=== PATIENT | female | born 1955 | race Caucasian/White ===

== ENCOUNTER 2021-11-17 11:16 | Emergency (ER) | payer MEDICARE ==
[~2021-11-17] VITALS: Ht 154.9 cm; Wt 52.0 kg
[~2021-11-17 11:16] MED LIST: ALPR-624 PO; ASPI81TA52 PO; ATOR40TA PO; DOCU250C96 PO; LEFL20TA PO; METH-603 PO; METH5TAB PO; OXYC-150 PO; TOFA5TAB PO; [UNRECOGNIZED DRUG - OTHER]
[2021-11-17 11:26] VITALS: BP 174/96
[2021-11-17 12:09] LABS: BASOPHILS % (AUTO) 0.1 % (0-1); EOSINOPHILS % (AUTO) 0.1 % (0-6); HEMATOCRIT 30.6 % (35.0-45.0); HEMOGLOBIN 9.9 g/dl (12.0-16.0); LYMPHOCYTES # (AUTO) 1.4 X10'3 (1.1-4.8); LYMPHOCYTES % (AUTO) 25.2 % (21-51); MEAN CORPUSCULAR HEMOGLOBIN 30.7 PG (27.0-31.0); MEAN CORPUSCULAR HGB CONC 32.3 g/dL (33.0-36.5); MEAN CORPUSCULAR VOLUME 95.1 FL (78-98); MEAN PLATELET VOLUME 9.8 FL (7.4-10.4); MONOCYTES # (AUTO) 0.6 X10'3 (0-0.9); MONOCYTES % (AUTO) 11.2 % (2-12); NEUTROPHILS # (AUTO) 3.5 X10'3 (1.8-7.7); NEUTROPHILS % (AUTO) 63.4 % (42-75); PLATELET COUNT 200 X10'3 (140-440); RED BLOOD COUNT 3.21 X10'6 (4.20-5.60); RED CELL DISTRIBUTION WIDTH 14.3 % (11.5-14.5); WHITE BLOOD COUNT 5.6 X10'3 (4.5-11.0)
[2021-11-17 12:38] LABS: ALANINE AMINOTRANSFERASE 24 U/L (12-78); ALBUMIN 3.2 G/DL (3.4-5.0); ALBUMIN/GLOBULIN RATIO 1.1 (1.1-1.5); ANION GAP 12 (8-16); ASPARTATE AMINO TRANSFERASE 26 U/L (10-37); BILIRUBIN,TOTAL 0.3 MG/DL (0.1-1.0); BLOOD UREA NITROGEN 21 MG/DL (7-18); BUN/CREATININE RATIO 16.4 (6.6-38.0); CALCIUM 8.4 MG/DL (8.5-10.1); CHLORIDE 110 MMOL/L (99-107); CREATININE 1.28 MG/DL (0.40-0.90); GLUCOSE 86 MG/DL (70-104); SODIUM 143 MMOL/L (135-145); TOTAL CARBON DIOXIDE 21.3 MMOL/L (24-32); TOTAL PROTEIN 6.2 G/DL (6.4-8.2); eGFR 42 ML/MIN
== END 2021-11-17 16:04 | disposition home or self-care (01) ==
LOC: ER 11:16
DX: R20.2 Paresthesia of skin (principal); M06.9 Rheumatoid arthritis, unspecified; Z88.5 Allergy status to narcotic agent; Z88.8 Allergy status to other drugs, medicaments and biological substances; Z88.1 Allergy status to other antibiotic agents; Z79.82 Long term (current) use of aspirin; Z79.899 Other long term (current) drug therapy
CPT/HCPCS: 29105; 36415; 80053; 85025; 93931; 93971; 99284

== ENCOUNTER 2023-06-01 08:14 | Outpatient (CLI) | payer MEDICARE, OTHER ==
[~2023-06-01] VITALS: Ht 152.4 cm; Wt 59.9 kg
[~2023-06-01 08:14] MED LIST changes: +DOCU-395 PO; -DOCU250C96 PO
[2023-06-01] MEDS ORDERED: regadenoson 0.4mg/5ml syringe IV ONE ×2 (09:40→10:05)
== END 2023-06-01 23:59 | disposition home or self-care (01) ==
LOC: RAD 08:14
PROVIDERS: ATTEND Internal Medicine Interventional Cardiology
DX: R94.31 Abnormal electrocardiogram [ECG] [EKG] (principal); I10 Essential (primary) hypertension; E78.5 Hyperlipidemia, unspecified; R00.1 Bradycardia, unspecified
CPT/HCPCS: 36410; 76937; 78452; 93017; A9500; C1751; J2785

== ENCOUNTER 2023-06-01 08:28 | Outpatient (CLI) | payer MEDICARE, OTHER ==
[~2023-06-01] VITALS: Ht 152.4 cm; Wt 59.0 kg
[2023-06-01] VITALS (10 sets, daily range): BP systolic 118–160; BP diastolic 72–89; PULSE 72–115; RESP 18–22; O2SAT 96–100
[2023-06-01 09:21] LABS: BASOPHILS % (AUTO) 0 % (0-1); EOSINOPHILS % (AUTO) 0.1 % (0-6); HEMATOCRIT 33.3 % (35.0-45.0); HEMOGLOBIN 10.8 g/dl (12.0-16.0); LYMPHOCYTES # (AUTO) 1.2 X10'3 (1.1-4.8); MEAN CORPUSCULAR HEMOGLOBIN 31.7 PG (27.0-31.0); MEAN CORPUSCULAR HGB CONC 32.4 g/dL (33.0-36.5); MEAN CORPUSCULAR VOLUME 97.9 FL (78-98); MEAN PLATELET VOLUME 9.4 FL (7.4-10.4); MONOCYTES # (AUTO) 0.7 X10'3 (0-0.9); MONOCYTES % (AUTO) 10.5 % (2-12); NEUTROPHILS # (AUTO) 4.5 X10'3 (1.8-7.7); NEUTROPHILS % (AUTO) 71.4 % (42-75); PLATELET COUNT 262 X10'3 (140-440); RED CELL DISTRIBUTION WIDTH 14.8 % (11.5-14.5); WHITE BLOOD COUNT 6.4 X10'3 (4.5-11.0)
[2023-06-01 09:48] LABS: % IRON SATURATION 24 % (11-46); IRON 57 UG/DL (49-151); TOTAL IRON BINDING CAPACITY 235 UG/DL (259-388)
[2023-06-01] MEDS ORDERED: regadenoson 0.4mg/5ml syringe IV ONE (09:55)
[2023-06-01 10:01] LABS: ALBUMIN 3.4 G/DL (3.4-5.0); ANION GAP 10 (8-16); BLOOD UREA NITROGEN 30 MG/DL (7-18); BUN/CREATININE RATIO 15.5 (10.0-20.0); CALCIUM 8.5 MG/DL (8.5-10.1); CHLORIDE 107 MMOL/L (99-107); CREATININE 1.93 MG/DL (0.40-0.90); GLUCOSE 91 MG/DL (70-104); MAGNESIUM 1.7 MG/DL (1.5-2.4); PHOSPHORUS 3.6 MG/DL (2.3-4.5); POTASSIUM 4.7 MMOL/L (3.5-5.1); SODIUM 139 MMOL/L (135-145); TOTAL CARBON DIOXIDE 22.2 MMOL/L (24-32); eCRCL 21 ML/MIN; eGFR 26 ML/MIN
[2023-06-01] MEDS ORDERED: aminophylline inj. 10 ML IV ONE (10:19)
[2023-06-01 10:33] LABS: FERRITIN 130 NG/ML (8-252)
[2023-06-02 11:01] LABS: VITAMIN D, 25-HYDROXY 30.7 ng/mL (30.0-100.0)
== END 2023-06-01 23:59 | disposition home or self-care (01) ==
LOC: LAB 08:28
PROVIDERS: ATTEND Nurse Practitioner Adult Health
DX: R94.31 Abnormal electrocardiogram [ECG] [EKG] (principal); N18.2 Chronic kidney disease, stage 2 (mild); D63.1 Anemia in chronic kidney disease; R94.4 Abnormal results of kidney function studies; E83.40 Disorders of magnesium metabolism, unspecified; E83.52 Hypercalcemia; R80.9 Proteinuria, unspecified; D50.9 Iron deficiency anemia, unspecified; R82.79 Other abnormal findings on microbiological examination of urine; N39.0 Urinary tract infection, site not specified
CPT/HCPCS: 36410; 36415; 76937; 78452; 80069; 82306; 82728; 83540; 83550; 83735; 83970; 85025; 93017; A9500; J0280; J2785; C1751

== ENCOUNTER 2024-05-19 13:41 | Emergency (ER) | payer MEDICARE, OTHER ==
[~2024-05-19] VITALS: Ht 152.4 cm; Wt 67.3 kg
[2024-05-19 13:44] VITALS: BP 185/119; PULSE 72; RESP 18; TEMP 97.9; O2SAT 97
[2024-05-19] MEDS ORDERED: PRED20TA PO (14:02)
[2024-05-19] MEDS ORDERED: HYDR25CA PO (14:02)
[2024-05-19] MEDS ORDERED: TRIA15CR61 TP (14:02)
== END 2024-05-19 14:08 | disposition home or self-care (01) ==
LOC: ER 13:41
DX: L29.8 Other pruritus (principal); Z88.8 Allergy status to other drugs, medicaments and biological substances; Z88.1 Allergy status to other antibiotic agents; Z79.82 Long term (current) use of aspirin; Z79.899 Other long term (current) drug therapy
CPT/HCPCS: 99283

== ENCOUNTER 2024-09-04 07:27 | Day surgery (SDC) | payer MEDICARE, OTHER ==
[~2024-09-04] VITALS: Ht 167.6 cm; Wt 64.5 kg
[~2024-09-04 07:27] MED LIST changes: -ALPR-624 PO; -ASPI81TA52 PO; +CALC0.2536 PO; +CARV25TA2 PO; -DOCU-395 PO; +FURO40TA4 PO; +HYDR50TA4 PO; -METH-603 PO; -METH5TAB PO; -OXYC-150 PO; +SARI200P IM; -TOFA5TAB PO; -[UNRECOGNIZED DRUG - OTHER]
[2024-09-04 07:57] VITALS: BP 151/90; PULSE 59; RESP 13; TEMP 97.9
[2024-09-04] MEDS ORDERED: fentaNYL/PF 50MCG/1 ML 2ML syringe ONE (08:26)
[2024-09-04] MEDS ORDERED: propofol inj 20 ML IV ONE (08:27)
[2024-09-04] MEDS ORDERED: midazolam 1 mg/ML 2ml injection ONE (08:27)
[2024-09-04 09:17] VITALS: BP 114/62; PULSE 75; RESP 16; O2SAT 100
[2024-09-04 09:27] VITALS: BP 109/67; PULSE 66; RESP 13; O2SAT 100
[2024-09-04 09:37] VITALS: BP 118/71; PULSE 67; RESP 13; O2SAT 95
[2024-09-04 09:47] VITALS: BP 132/80; PULSE 74; RESP 12; O2SAT 94
== END 2024-09-04 10:01 | disposition home or self-care (01) ==
LOC: GI LAB 07:27
PROVIDERS: ATTEND Internal Medicine Gastroenterology
DX: R19.5 Other fecal abnormalities (principal); K63.5 Polyp of colon; K57.30 Diverticulosis of large intestine without perforation or abscess without bleeding; K64.1 Second degree hemorrhoids; I12.9 Hypertensive chronic kidney disease with stage 1 through stage 4 chronic kidney disease, or unspecified chronic kidney disease; E11.22 Type 2 diabetes mellitus with diabetic chronic kidney disease; N18.32 Chronic kidney disease, stage 3b; E66.9 Obesity, unspecified; E78.5 Hyperlipidemia, unspecified; G47.33 Obstructive sleep apnea (adult) (pediatric); F41.9 Anxiety disorder, unspecified; I25.2 Old myocardial infarction; M06.9 Rheumatoid arthritis, unspecified; Z87.891 Personal history of nicotine dependence; Z86.73 Personal history of transient ischemic attack (TIA), and cerebral infarction without residual deficits; Z79.899 Other long term (current) drug therapy; Z68.28 Body mass index [BMI] 28.0-28.9, adult; Z88.1 Allergy status to other antibiotic agents; Z88.5 Allergy status to narcotic agent; Z91.040 Latex allergy status
CPT/HCPCS: 45380; 45385; C1889; J2250; J2704; J3010; J7030; Z7512; 45378; 88305

== ENCOUNTER 2025-04-25 05:57 | Emergency (ER) | payer MEDICARE, OTHER ==
[~2025-04-25] VITALS: Ht 152.4 cm; Wt 60.5 kg
[2025-04-25 07:38] LABS: MEAN PLATELET VOLUME 9.4 FL (7.4-10.4); RED CELL DISTRIBUTION WIDTH 14.0 % (11.5-14.5)
[2025-04-25 07:46] LABS: CREATININE 2.36 MG/DL (0.40-0.90); TOTAL CARBON DIOXIDE 20.0 MMOL/L (24-32); eCRCL 17 ML/MIN; eGFR 21 ML/MIN
[2025-04-25] MEDS: normal saline 1000ml 1,000 ML IV ONE (08:49)
[2025-04-25 09:32] LABS: LEUKOCYTE ESTERASE ,URINE TRACE (Neg); NITRITES, URINE NEGATIVE (Neg); OCCULT BLOOD,URINE TRACE-INTACT (Neg)
[2025-04-25 09:38] LABS: UA COLLECTION TYPE NON-SPECIFIED
[2025-04-25 09:39] LABS: SQUAMOUS EPITHELIAL CELL,UR MANY /LPF (FEW)
[2025-04-25] MEDS: HYDROcodone/acetaminophen 5mg/325mg tablet PO ONE (10:22)
[2025-04-25] MEDS: CefTRIAXone/D5W-Rocephin 1gm 50 ML IV ONE (10:35)
[2025-04-25] MEDS: ondansetron/PF 4mg/2ml inj IV ONE (10:36)
[2025-04-25] MEDS: ketorolac trometh 15mg/ml vial 15 MG/ML ML IV ONE (10:36)
[2025-04-25 12:12] VITALS: BP 149/96; PULSE 66; RESP 14; TEMP 97.9; O2SAT 97
--- NOTE | 2025-04-25 12:28 | Physician Documentation ---
History of Present Illness ~ Chief Complaint: Urinary Retention Stated Complaint: KIDNEY ISSUES Time Seen by MD: 06:16 HPI 69 year old female with L flank pain Medication Reconciliation Allergies: Coded Allergies: morphine (Verified Allergy, Intermediate, 04/25/25) acetaminophen (Verified Allergy, Unknown, HIVES EVERYWHERE, 04/25/25) codeine (Verified Allergy, Unknown, HIVES, 04/25/25) hydrocodone (Verified Allergy, Unknown, HIVES EVERYWHERE, 04/25/25) pregabalin (Verified Allergy, Unknown, CRAZY, 04/25/25) vancomycin (Verified Allergy, Unknown, LIPS SWELL, ITCH, HIVES, 04/25/25) Scheduled Atorvastatin Calcium* (Lipitor*), 0.5 TAB PO DAILY, (Reported) Calcitriol (CALCITRIOL capsule), 1 CAP PO DAILY, (Reported) Carvedilol (Carvedilol), 1 TAB PO DAILY, (Reported) Furosemide (Furosemide), 1 TAB PO DAILY, (Reported) Hydrochlorothiazide (Hydrochlorothiazide), 1 TAB PO DAILY, (Reported) Leflunomide (Arava), 1 TAB PO DAILY, (Reported) Miscellaneous Medications Sarilumab (Kevzara), 200 MG IM, (Reported) Past Medical History Past Medical History: No Pertinent History Past Surgical History: noncontributory Alcohol Use: None Drug Use: none Physical Exam Vital Signs: Temperature: 97.9, Source: Oral, Heart Rate: 66, Respiratory Rate: 14, BP: 149/96, Pulse Oximetry: 97, Weight: 60.450 Oxygen Flow Rate: 0 Progress Results/Orders Results/Orders Orders - ALIN ISBELL MD Bladder Scan (04/25/25 ) Completed Orders - ALIN ISBELL MD Cbc/Diff (04/25/25 06:57) CMP (04/25/25 06:57) Normal Saline 1000ml (0.9% Sodium Chlori (04/25/25 08:20) Ua W/Microscopic, Cult If Ind (04/25/25 09:21) Hydrocodone/Apap 5/325mg Tab (Wilson 5/32 (04/25/25 10:05) Ceftriaxone/Y8l-Dngfigtr 1gm (Rocephin 1 (04/25/25 10:05) Ketorolac Trometh 15mg/Ml Vial (Toradol (04/25/25 10:25) Ondansetron Inj. (Zofran 4mg/2ml Vial) (04/25/25 10:25) Medications Received in ER Medications (Trade) Dose Ordered Sig/Nelida Route PRN Reason Start Time Stop Time Status Last Admin Dose Admin Sodium Chloride 1,000 ml @ 1,000 mls/hr ONCE ONCE IV 04/25/25 08:20 04/25/25 09:19 DC 04/25/25 08:49 1,000 MLS/HR Ceftriaxone Sodium 50 ml @ 100 mls/hr ONCE ONCE IV 04/25/25 10:05 04/25/25 10:34 DC 04/25/25 10:35 100 MLS/HR (Toradol injection) 15 mg ONCE ONCE IV 04/25/25 10:25 04/25/25 10:28 DC 04/25/25 10:36 15 MG (Zofran 4mg/2ml vial) 4 mg ONCE ONCE IV 04/25/25 10:25 04/25/25 10:26 DC 04/25/25 10:36 4 MG Vital Signs 04/25/25 04/25/25 04/25/25 04/25/25 06:03 06:45 07:45 08:45 Temp 97.0 98.0 Pulse 85 71 79 79 Resp 16 16 14 14 B/P (MAP) 203/137 158/85 (109) 159/87 (111) 164/98 (120) Pulse Ox 98 95 98 97 O2 Flow Rate 0 0 0 0 04/25/25 04/25/25 10:45 12:12 Temp 98.2 97.9 Pulse 81 66 Resp 12 14 B/P (MAP) 174/107 (129) 149/96 Pulse Ox 98 97 O2 Flow Rate 0 Laboratory Tests Test 04/25/25 07:25 04/25/25 09:21 White Blood Count 7.9 Red Blood Count 3.33 L Hemoglobin 10.5 L Hematocrit 31.4 L Mean Corpuscular Volume 94.4 Mean Corpuscular Hemoglobin 31.6 H Mean Corpuscular Hemoglobin Concent 33.4 Red Cell Distribution Width 14.0 Platelet Count 237 Mean Platelet Volume 9.4 Neutrophils (%) (Auto) 79.6 H Lymphocytes (%) (Auto) 10.7 L Monocytes (%) (Auto) 9.1 Eosinophils (%) (Auto) 0 Basophils (%) (Auto) 0.6 Neutrophils # (Auto) 6.3 Lymphocytes # (Auto) 0.8 L Monocytes # (Auto) 0.7 Eosinophils # (Auto) 0.0 Basophils # (Auto) 0.0 CBC Comment Sodium Level 138 Potassium Level 4.3 Chloride Level 108 H Carbon Dioxide Level 20.0 L Anion Gap 10 Blood Urea Nitrogen 40 H Creatinine 2.36 H Estimated GFR/1.73 m2 21 BUN/Creatinine Ratio 16.9 Glucose Level 98 Calcium Level 8.1 L Total Bilirubin 0.4 Aspartate Amino Transf (AST/SGOT) 25 Alanine Aminotransferase (ALT/SGPT) 22 Alkaline Phosphatase 72 Total Protein 6.5 Albumin 3.1 L Globulin 3.4 Albumin/Globulin Ratio 0.9 L Chemistry Comments Urine Specimen Description Non-specified Urine Color Yellow Urine Clarity Slightly cloudy Urine pH 6.0 Urine Specific [place] 1.015 Urine Protein Trace Urine Glucose (UA) Negative Urine Ketones Trace H Urine Occult Blood Trace-intact Urine Nitrite Negative Urine Bilirubin Negative Urine Urobilinogen 0.2 Urine Leukocyte Esterase Trace H Urine RBC 10-20 Urine WBC 5-10 H Urine Squamous Epithelial Cells Many Urine Bacteria 2+ Urine Culture Indicated Rejected for culture Volume Urine Centrifuged 10 ml Urine Comment Departure Disposition: 01 HOME / SELF CARE / HOMELESS Impression: Primary Impression: Urinary tract infection Condition: Stable Discharge Instructions: Urinary Tract Infection, Adult Referrals: NO PRIMARY CARE PROVIDER (PCP) Education Educated: Patient Educated regarding: diagnosis, treatment, prognosis, need for follow up ALIN ISBELL MD Apr 25, 2025 12:28
[2025-04-25] MEDS ORDERED: CEPH-585 PO (13:02)
== END 2025-04-25 13:49 | disposition home or self-care (01) ==
LOC: ER 05:57
DX: N39.0 Urinary tract infection, site not specified (principal); Z88.5 Allergy status to narcotic agent; Z88.1 Allergy status to other antibiotic agents; Z88.8 Allergy status to other drugs, medicaments and biological substances; Z79.899 Other long term (current) drug therapy
CPT/HCPCS: 36415; 80053; 81001; 85025; 96361; 96365; 96375; 99285; J0696; J1885; J2405; J7030

== ENCOUNTER 2025-05-06 12:51 | Inpatient (IN) | payer MEDICARE, OTHER ==
[~2025-05-06] VITALS: Ht 152.4 cm; Wt 60.5 kg
[~2025-05-06 12:51] MED LIST changes: +CEPH-585 PO
[2025-05-06 13:54] LABS: MEAN PLATELET VOLUME 9.3 FL (7.4-10.4); RED CELL DISTRIBUTION WIDTH 14.2 % (11.5-14.5)
[2025-05-06 14:07] LABS: CREATININE 2.10 MG/DL (0.40-0.90); TOTAL CARBON DIOXIDE 23.3 MMOL/L (24-32); eCRCL 19 ML/MIN; eGFR 23 ML/MIN
--- NOTE | 2025-05-06 16:29 | Physician Documentation ---
History of Present Illness ~ Chief Complaint: Flank Pain Stated Complaint: KIDNEY ISSUES Time Seen by MD: 13:57 Mode of Arrival: POV, Ambulatory HPI Patient is seen today with complaints of left-sided flank pain and urinary urgency and frequency with dysuria. Patient states she was seen about a week ago and treated for urinary tract infection outpatient with Keflex 3 times a da y. Patient states she took her last dose yesterday and states she only felt a little bit better for about one day but then her symptoms have returned and worsened. Patient states she originally had right-sided flank pain but it is now moved to left side. She states she just does not feel well and has some body aches. She denies any chest pain or shortness of breath or nausea, v omiting, diarrhea does have some lower abdominal discomfort. She has no other concern or complaint at this time. Medication Reconciliation Allergies: Coded Allergies: acetaminophen (Verified Allergy, Unknown, HIVES EVERYWHERE, 05/06/25) codeine (Verified Allergy, Unknown, HIVES, 05/06/25) hydrocodone (Verified Allergy, Unknown, HIVES EVERYWHERE, 05/06/25) pregabalin (Verified Allergy, Unknown, CRAZY, 04/25/25) vancomycin (Verified Allergy, Unknown, LIPS SWELL, ITCH, HIVES, 04/25/25) morphine (Verified Adverse Reaction, Mild, burning at site, 05/06/25) Scheduled Atorvastatin Calcium* (Lipitor*), 0.5 TAB PO DAILY, (Reported) Calcitriol (CALCITRIOL capsule), 1 CAP PO DAILY, (Reported) Carvedilol (Carvedilol), 1 TAB PO DAILY, (Reported) Cephalexin*Monohydrate* (Keflex*), 1 CAP PO QID Furosemide (Furosemide), 1 TAB PO DAILY, (Reported) Hydrochlorothiazide (Hydrochlorothiazide), 1 TAB PO DAILY, (Reported) Leflunomide (Arava), 1 TAB PO DAILY, (Reported) Miscellaneous Medications Sarilumab (Kevzara), 200 MG IM, (Reported) Past Medical History Past Medical History: No Pertinent History Past Surgical History: noncontributory Smoking Status: Never smoker Alcohol Use: None Drug Use: none Review of Systems Constitutional: Denies: chills, fever, weakness Eyes: Denies: pain, blurred vision ENT: Denies: ear pain, nose pain, throat pain, mouth pain Respiratory: Denies: cough, shortness of breath Cardiovascular: Denies: chest pain, palpitations Gastrointestinal: Denies: abdominal pain, nausea, vomiting Genitourinary: Denies: burning, dysuria Female Genitalia: Denies: vaginal discharge, pelvic pain Neurological: Denies: headache, dizziness Musculoskeletal: Denies: pain, swelling Integumentary: Denies: rash, lesions Allergic/Immunologic: Denies: hives, itching Hematologic/Lymphatic: Denies: no symptoms reported Psychiatric: Denies: depression, anxiety Physical Exam Vital Signs: Temperature: 97.0, Heart Rate: 72, Respiratory Rate: 16, BP: 153/79, Pulse Oximetry: 95, Weight: 60.450 Oxygen Flow Rate: 0 Physical Exam General: Awake and Alert, no acute distress. HEENT: Conjunctiva pink, Sclera clear, Mucus Membranes moist. Neck: Supple without masses and tenderness. Resp: Unlabored. Lungs clear to auscultation bilaterally. Heart: Regular Rate and rhythm, normal S1 and S2 without murmur, rub or gallop. Abdomen: Patient on exam does have significant left-sided CVA tenderness only and does not have any CVA tenderness on the right side. Patient does have mild suprapubic tenderness to palpation without rebound and without guarding and abdomen is otherwise nondistended and Soft and non tender no organomegaly Extremities: No cyanosis,clubbing or edema. Skin: Warm and Dry. Progress Results/Orders Results/Orders Orders - RIGO DELEON PAC Saline Lock (05/06/25 ) Ct Abdomen Pelvis (05/06/25 17:18) Page Hospitalist (05/06/25 18:28) Fill Out Med Reconciliation (05/06/25 18:28) Completed Orders - RIGO DELEON PAC Normal Saline 1000ml (0.9% Sodium Chlori (05/06/25 15:55) Ct Abdomen Pelvis (05/06/25 17:18) Iohexol 300mg/Ml 100ml Inj. (Omnipaque-3 (05/06/25 16:52) Ondansetron Inj. (Zofran 4mg/2ml Vial) (05/06/25 16:55) Hydromorphone 0.5 Mg/0.5 Ml/Pf (Dilaudid (05/06/25 17:00) Medications Received in ER Medications (Trade) Dose Ordered Sig/Nelida Route PRN Reason Start Time Stop Time Status Last Admin Dose Admin Sodium Chloride 1,000 ml @ 1,000 mls/hr ONCE STAT IV 05/06/25 15:55 05/06/25 16:54 DC 05/06/25 17:08 1,000 MLS/HR (Zofran 4mg/2ml vial) 4 mg ONCE ONCE IV 05/06/25 16:55 05/06/25 16:56 DC 05/06/25 17:02 4 MG (Dilaudid inj.) 0.5 mg ONCE ONCE IV 05/06/25 17:00 05/06/25 17:01 DC 05/06/25 17:03 0.5 MG Vital Signs 05/06/25 05/06/25 05/06/25 05/06/25 13:08 15:04 15:15 16:32 Temp 97.0 Pulse 68 72 80 Resp 16 16 16 16 B/P (MAP) 200/119 153/79 (103) 161/92 (115) Pulse Ox 97 95 98 O2 Flow Rate 0 0 05/06/25 05/06/25 05/06/25 05/06/25 17:03 18:10 18:11 19:00 Pulse 83 79 Resp 16 16 16 16 B/P (MAP) 140/72 (94) 156/89 (111) Pulse Ox 95 97 O2 Flow Rate 0 0 Laboratory Tests Test 05/06/25 13:36 White Blood Count 8.5 Red Blood Count 3.40 L Hemoglobin 10.6 L Hematocrit 32.5 L Mean Corpuscular Volume 95.6 Mean Corpuscular Hemoglobin 31.1 H Mean Corpuscular Hemoglobin Concent 32.5 L Red Cell Distribution Width 14.2 Platelet Count 315 Mean Platelet Volume 9.3 Neutrophils (%) (Auto) 76.9 H Lymphocytes (%) (Auto) 12.7 L Monocytes (%) (Auto) 9.9 Eosinophils (%) (Auto) 0.2 Basophils (%) (Auto) 0.3 Neutrophils # (Auto) 6.5 Lymphocytes # (Auto) 1.1 Monocytes # (Auto) 0.8 Eosinophils # (Auto) 0.0 Basophils # (Auto) 0.0 CBC Comment Sodium Level 144 Potassium Level 4.9 Chloride Level 109 H Carbon Dioxide Level 23.3 L Anion Gap 12 Blood Urea Nitrogen 38 H Creatinine 2.10 H Estimated GFR/1.73 m2 23 BUN/Creatinine Ratio 18.1 Glucose Level 92 Calcium Level 9.3 Total Bilirubin 0.4 Aspartate Amino Transf (AST/SGOT) 25 Alanine Aminotransferase (ALT/SGPT) 17 Alkaline Phosphatase 72 Total Protein 6.9 Albumin 3.4 Globulin 3.5 Albumin/Globulin Ratio 1.0 L Lipase 85 H Chemistry Comments EKG/XRAY/CT/US/VASC/MRI CT : Impression CAT SCAN Patient: MILADYS FINNEY Medical Record: [id number] [facility] : 1955, Age: 69 Sex: Female Location: ER Patient Status: [facility] ER Service Date/Time: 05/06/251717 Ordering Physician: RIGO DELEON PAC Exam: CT ABDOMEN PELVIS Exam: CT CT ABDOMEN PELVIS W/ IV CONTRAST History: left flank pain COMPARISON: None Technique: Multidetector spiral CT of the abdomen and pelvis was performed from lung bases to pubic symphysis. Intravenous contrast was administered during this examination. Portal venous imaging was obtained. Axial, coronal and sagittal multiplanar reformats were performed by the technologist on a separate workstation. Radiation Dose : 1. Abdomen/Pelvis: CTDIvol 30 mGy, DLP 1405 mGy*cm. CONTRAST: Type of contrast: Omnipaque 300 Contrast injected: 100 ml Findings: Lung Bases: No acute or significant lung base finding. Normal heart size. No pleural or pericardial effusion. Liver: The liver is normal in size. No focal lesions. Normal hepatic vascular enhancement. Gallbladder and Biliary Tree: Gallbladder is surgically absent. Spleen: Unremarkable Pancreas: The pancreas is normal in appearance without focal lesions or abnormal enhancement. Adrenal Glands: Unremarkable Kidneys: 6 mm obstructing stone in the left UVJ is causing mild left-sided hydroureteronephrosis and left-sided pyelonephritis. Unremarkable right kidney. Bladder: Unremarkable Bowel: The stomach is grossly normal in appearance. Small bowel and colon are normal in caliber and distribution. The appendix is not visualized; however, no secondary findings of acute appendicitis identified. Ascites: Absent Lymphadenopathy: No mesenteric, retroperitoneal or periportal lymphadenopathy. Abdominal Wall and Mesentery: Unremarkable. Vasculature: The visualized abdominal aorta is normal in size and caliber. Abdominal and pelvic vessels demonstrate normal enhancement. Pelvic Organs: Unremarkable Musculoskeletal: Status post left hip arthroplasty. IMPRESSION: 1. 6 mm obstructing stone in the left UVJ is causing mild left-sided hydroureteronephrosis and left-sided pyelonephritis. Radiation optimization: All CT scans at this facility use at least one of these dose optimization techniques: automated exposure control mA and/or kV adjustment per patient size (includes targeted exams where dose is matched to clinical indication) or iterative reconstruction. Electronically Signed by:MELVINA CLIFFORD MD Date & Time: 05/06/251817 Dictated by: MELVINA CLIFFORD MD Dictation date and time: 05/06/25 171 Primary Care Provider: NO PRIMARY CARE PROVIDER cc: RIGO DELEON PAC ~ Medical Decision Making Findings Patient is seen today with complaints of left-sided flank pain and urinary urgency and frequency with dysuria. Patient states she was seen about a week ago and treated for urinary tract infection outpatient with Keflex 3 times a day. Patient states she took her last dose yesterday and states she only felt a little bit better for about one day but then her symptoms have returned and worsened. Patient states she originally had right-sided flank pain but it is now moved to left side. She states she just does not feel well and has some body aches. She denies any chest pain or shortness of breath or nausea, vomiting, diarrhea does have some lower abdominal discomfort. She has no other concern or complaint at this time. Patient did have CT scan of the abdomen and pelvis showed 6 mm obstructing stone in the left side with sign of pyelonephritis. Patient will be admitted to the hospital. I did call and consult with Dr. Ortiz who stated that as long as the patient's pain is under control the patient can be discharged in the morning as the patient does not currently have a white blood cell count and culture was not indicated on urinalysis and the patient will need to call Dr. Mccain office to schedule any further consult. Departure Disposition: ADMITTED INPATIENT Admitted to Inpatient Unit: to hospitalist Admission Level of Care: Med/Surg Impression: Primary Impression: Acute pyelonephritis Additional Impression: Calculus of kidney Condition: Improved Discharge Instructions: Pyelonephritis, Adult Additional Instructions: Patient did have CT scan of the abdomen and pelvis showed 6 mm obstructing stone in the left side with sign of pyelonephritis. Patient will be admitted to the hospital. I did call and consult with Dr. Ortiz who stated that as long as the patient's pain is under control the patient can be discharged in the morning as the patient does not currently have a white blood cell count and culture was not indicated on urinalysis and the patient will need to call Dr. Mccain office to schedule any further consult. Referrals: NO PRIMARY CARE PROVIDER (PCP) Signature Scribe Signature: No scribe Attestation: No scribe RIGO DELEON PAC May 06, 2025 16:29
[2025-05-06] MEDS ORDERED: iohexol 300mg/ml 100ml inj. ONE (16:52)
[2025-05-06] MEDS: ondansetron/PF 4mg/2ml inj IV ONE (17:02)
[2025-05-06] MEDS: HYDROmorphone inj. 0.5 MG/0.5 ML DISP.SYRIN IV ONE (17:03)
[2025-05-06] MEDS: normal saline 1000ml 1,000 ML IV STA (17:08)
--- NOTE | 2025-05-06 18:21 | RADIOLOGY REPORT ---
Exam: CT CT ABDOMEN PELVIS W/ IV CONTRAST History: left flank pain COMPARISON: None Technique: Multidetector spiral CT of the abdomen and pelvis was performed from lung bases to pubic s ymphysis. Intravenous contrast was administered during this examination. Portal venous imaging was obtained. Axial, coronal and sagittal multiplanar reformats were performed by the technologist on a separate workstation. Radiation Dose : 1. Abdomen/Pelvis: CTDIvol 30 mGy, DLP 1405 mGy*cm. CONTRAST: Type of contrast: Omnipaque 300 Contrast injected: 100 ml Findings: Lung Bases: No acute or significant lung base finding. Normal heart size. No pleural or pericardial effusion. Liver: The liver is normal in size. No focal lesions. Normal hepatic vascular enhancement. Gallbladder and Biliary Tree: Gallbladder is surgically absent. Spleen: Unremarkable Pancreas: The pancreas is normal in appearance without focal lesions or abnormal enhancement. Adrenal Glands: Unremarkable Kidneys: 6 mm obstructing stone in the left UVJ is causing mild left-sided hydroureteronephrosis an d left-sided pyelonephritis. Unremarkable right kidney. Bladder: Unremarkable Bowel: The stomach is grossly normal in appearance. Small bowel and colon are normal in caliber and d istribution. The appendix is not visualized; however, no secondary findings of acute appendicitis id entified. Ascites: Absent Lymphadenopathy: No mesenteric, retroperitoneal or periportal lymphadenopathy. Abdominal Wall and Mesentery: Unremarkable. Vasculature: The visualized abdominal aorta is normal in size and caliber. Abdominal and pelvic vess els demonstrate normal enhancement. Pelvic Organs: Unremarkable Musculoskeletal: Status post left hip arthroplasty. IMPRESSION: 1. 6 mm obstructing stone in the left UVJ is causing mild left-sided hydroureteronephrosis and left-s ided pyelonephritis. Radiation optimization: All CT scans at this facility use at least one of these dose optimization leidy hniques: automated exposure control mA and/or kV adjustment per patient size (includes targeted exam s where dose is matched to clinical indication) or iterative reconstruction.
[2025-05-06] MEDS ORDERED: mag hydrox/Alum hydrox/simeth 30ml oral suspension PO PRN (20:35)
[2025-05-06] MEDS ORDERED: potassium Cl 20 mEq SR tablet PO PRN ×2 (20:35)
[2025-05-06] MEDS ORDERED: potassium Cl 40MEQ/1/2NS 520ml 520 ML IV PRN (20:35)
[2025-05-06] MEDS ORDERED: magnesium hydroxide 30ml (MOM) UD suspension PO PRN (20:35)
[2025-05-06 20:53] LABS: LEUKOCYTE ESTERASE ,URINE NEGATIVE (Neg); NITRITES, URINE NEGATIVE (Neg); OCCULT BLOOD,URINE TRACE-INTACT (Neg)
[2025-05-06 20:56] LABS: UA COLLECTION TYPE NON-SPECIFIED
[2025-05-06 21:01] LABS: MUCUS STRANDS FEW /LPF (Neg); SQUAMOUS EPITHELIAL CELL,UR FEW /LPF (FEW)
[2025-05-06] MEDS: CefTRIAXone/D5W-Rocephin 1gm 50 ML IV SCH (21:33)
[2025-05-06] MEDS: ringers solution, lacted 1,000 ML IV SCH (21:34)
[2025-05-06 22:00] VITALS: BP 166/89; PULSE 75; RESP 16; TEMP 98; O2SAT 96
--- NOTE | 2025-05-06 22:13 | HISTORY AND PHYSICAL-Residence ---
History & Physical Providers to CC Resident Creating Document: ELIANA BRISCOE RES ~ History of Present Illness Reason for Admit\Complaint: Obstructive ureterolithiasis, pyelonephritis, ANJELICA History of Present Illness This is a 69-year-old female patient with a past medical history of rheumatoid arthritis, hypertension, hyperlipidemia, gastroparesis, recurrent osteomyelitis, presented to the emergency department for acute left flank pain radiating for left inguinal region, associated with difficulty to urinate. The pain was severe (8/10 in intensity) and associated with nausea, vomiting and chills. Patient presented on April 25 for right side flank pain and was treated with cephalexin for two weeks, with complete resolution of the pain, denies fever, diarrhea or any respiratory symptoms. The pain has now subsided and she is comfortable without any other complaints. Allergies: Coded Allergies: acetaminophen (Verified Allergy, Unknown, HIVES EVERYWHERE, 05/06/25) codeine (Verified Allergy, Unknown, HIVES, 05/06/25) hydrocodone (Verified Allergy, Unknown, HIVES EVERYWHERE, 05/06/25) pregabalin (Verified Allergy, Unknown, CRAZY, 04/25/25) vancomycin (Verified Allergy, Unknown, LIPS SWELL, ITCH, HIVES, 04/25/25) morphine (Verified Adverse Reaction, Mild, burning at site, 05/06/25) Home Medications Home Medications Active Keflex* (Cephalexin HCl) 500 Mg Capsule 1 Cap PO QID Reported Carvedilol 25 Mg Tablet 1 Tab PO DAILY 30 Days Kevzara (Sarilumab) 200 Mg/1.14 Ml Pen.injctr 200 Mg IM Hydrochlorothiazide 50 Mg Tablet 1 Tab PO DAILY CALCITRIOL capsule (Calcitriol) 0.25 Mcg Capsule 1 Cap PO DAILY Furosemide 40 Mg Tablet 1 Tab PO DAILY Arava (Leflunomide) 20 Mg Tablet 1 Tab PO DAILY Lipitor* (Atorvastatin Calcium) 40 Mg Tablet 0.5 Tab PO DAILY Past Medical History Past Medical History Rheumatoid arthritis Hypertension Hyperlipidemia Gastroparesis Recurrent osteomyelitis Past Surgical History Surgical History Comment Bilateral knee replacement Bilateral elbow replacement removed after osteomyelitis Right Achilles tendon rupture after Levaquin Past Social History Smoking: Non-Smoker Alcohol Use: None Drug Use: Marijuana Lives with: Spouse Lives In: Home ROS Constitutional: Reports: chills, weakness Eyes: Reports: no symptoms reported; Denies: pain, blurred vision ENT: Reports: no symptoms reported; Denies: ear pain, nose pain, throat pain, mouth pain Respiratory: Reports: no symptoms reported; Denies: cough, shortness of breath Cardiovascular: Reports: no symptoms reported; Denies: chest pain, palpitations Gastrointestinal: Reports: abdominal pain, nausea, vomiting Genitourinary: Reports: decreased urine output; Denies: burning, dysuria Female Genitalia: Reports: no reported symptoms Neurological: Reports: no symptoms reported; Denies: headache, dizziness Musculoskeletal: Reports: no symptoms reported; Denies: pain, swelling Integumentary: Reports: no symptoms reported; Denies: rash, lesions Allergic/Immunologic: Reports: no symptoms reported; Denies: hives, itching Hematologic/Lymphatic: Reports: no symptoms reported Endocrine: Reports: no symptoms reported Psychiatric: Reports: no symptoms reported; Denies: depression, anxiety Exam Vitals: Vital Signs Date Time Temp Pulse Resp B/P (MAP) Pulse Ox O2 Delivery O2 Flow Rate FiO2 05/06/25 22:00 14 05/06/25 21:00 98.4 84 168/86 (113) 96 05/06/25 19:00 0 General: General: Awake and Alert, no acute distress. HEENT: Conjunctiva pink, Sclera clear, Mucus Membranes moist. Neck: Supple without masses and tenderness. Resp: Unlabored. Lungs clear to auscultation bilaterally. Heart: Regular Rate and rhythm, normal S1 and S2 without murmur, rub or gallop. Abdomen: Positive left costovertebral angle tenderness. Abdomen is soft, nondistended but mildly tender on palpation of left upper and lower quadrants. Positive bowel sounds. No guarding or rebound. No hepatosplenomegaly or palpable masses. Extremities: No cyanosis,clubbing or edema. Skin: Warm and Dry. Diagnostic Data Last Recorded Lab Results: 05/06/25 1336 05/06/25 1336 Advance Care Planning Advanced Care plannin - 30 Minutes (I have discussed with advanced care directives and the patient wants to be DNR) Additional Plan Assessment This is a 69-year-old female patient with a past medical history of rheumatoid arthritis, hypertension, hyperlipidemia, gastroparesis, recurrent osteomyelitis, admitted for left obstructive ureterolithiasis complicated with hydronephrosis, pyelonephritis and ANJELICA. Patient is being treated initially with IV fluids, tamsulosin and ceftriaxone. Dr. Ortiz was consulted by the ER staff and did not recommend any procedure at this moment. If she does not develop any signs of sepsis and the pain is controlled she can be discharged with outpatient follow-up. Plan Complicated obstructive ureterolithiasis CT abdomen: 6 mm obstructing stone in the left UVJ is causing mild left-sided hydroureteronephrosis and left-sided pyelonephritis. Sepsis ruled-out WBC 8.5, ESR 36, procalcitonin < 0.05, lactic acid 1.3 Urinalysis: 3-10 RBC, negative nitrite and leukocyte esterase Received 1000 mL of normal saline Started on tamsulosin 0.4 mg daily Started on IV hydration and ceftriaxone Ordered blood cultures Acute on chronic kidney injury Creatinine 2.1 (baseline 1.93), BUN 38 IV hydration with lactated Ringer at 100 mL/hr Rheumatoid arthritis - not on acute flare Continue home medication after med reconciliation Hypertension - not controlled most likely because of the pain Continue home medication after med reconciliation Hydralazine 10 mg IV p.r.n. Hyperlipidemia Ordered lipid panel Continue atorvastatin 40 mg after med reconciliation Code Status: DNR DVT prophylaxis: Heparin Analgesia/sedation: Morphine/[place] Line/tube: PIV GI prophylaxis: None Nutrition: Regular diet Physical therapy: yes Disposition: Admit to the surgical floor. Pending med reconciliation. Date of Service: May 06, 2025 Billing Provider: RAMANA GROSS MD, LUCAS, RES May 06, 2025 22:13
[2025-05-06] MEDS: hydrALAZINE 20mg/ml inj. IV PRN (23:43)
[2025-05-07] VITALS (7 sets, daily range): BP systolic 105–160; BP diastolic 60–88; PULSE 80–99; RESP 16–18; TEMP 97.2–97.9; O2SAT 95–98
[2025-05-07] MEDS: ondansetron/PF 4mg/2ml inj IV PRN (00:47)
[2025-05-07 01:33] LABS: OSMOLALITY UA 530.0 MOSM/K (50-1400)
[2025-05-07 01:46] LABS: CREATININE,URINE RANDOM 50.0 MG/DL
[2025-05-07 01:47] LABS: UA UREA RANDOM 386.0 MG/DL
[2025-05-07] MEDS: metoclopramide 5 mg/ml inj IV PRN (03:27)
[2025-05-07 04:56] LABS: MEAN PLATELET VOLUME 9.3 FL (7.4-10.4); RED CELL DISTRIBUTION WIDTH 14.2 % (11.5-14.5)
[2025-05-07 05:21] LABS: CREATININE 2.43 MG/DL (0.40-0.90); TOTAL CARBON DIOXIDE 20.2 MMOL/L (24-32); eCRCL 16 ML/MIN; eGFR 20 ML/MIN
[2025-05-07 05:22] LABS: CHOL/HDL RATIO 4.1 (0.00-4.99); LDL CHOLESTEROL 105 MG/DL (50-100)
[2025-05-07] MEDS: docusate sod 100mg capsule PO SCH (08:00)
[2025-05-07] MEDS: K and/or MAG REPLACEMENT MC SCH (08:00)
[2025-05-07] MEDS: heparin, porcine 5000 units/ml vial SQ SCH (08:29)
[2025-05-07] MEDS: magnesium Cl slow-release 64mg tablet PO PRN (08:30)
[2025-05-07] MEDS: HYDROmorphone inj. 0.5 MG/0.5 ML DISP.SYRIN IV PRN (14:19)
[2025-05-07] MEDS ORDERED: LOSA100T58 PO (16:14)
--- NOTE | 2025-05-07 20:16 | PROGRESS NOTE ---
Daily Progress Note Providers to CC ~ no new complaint today resting comfortably in the bed Central Line/PICC still needed: No Garsia-Non Protocol Garsia Indications Met/Not Met: F/C Indications Not Met Antibiotic Timeout Antibiotic Ordered?: Yes MRSA Education MRSA Education Provided to pt: Yes Subjective As above Objective Vital Signs Date Time Temp Pulse Resp B/P (MAP) Pulse Ox O2 Delivery O2 Flow Rate FiO2 05/07/25 19:29 18 05/07/25 10:00 97.2 89 132/78 (96) 96 Room Air 05/07/25 08:00 0.0 Vital signs, stable ,afebrile. Pulse Oximetry reflects adequate oxygenation. General: well developed, well nourished. Awake , alert, and oriented x4, resting comfortably in the bed, in no acute distress . Skin: Warm, dry, no pallor, no rash or petechiae. HEENT: Atraumatic, normocephalic, EOMI, anicteric sclera B; pink conjunctiva; PERRLA, normal oropharynx, moist oral and nasal mucosa. Tympanic membrane , nose , throat clear. Neck: Trachea midline. Supple, full range of motion, no JVD, bruit , hepatojugular reflex , lymphadenopathy or masses, or other lesions Cardiac: Regular rhythm, regular rate no murmurs, rubs, or gallops. Normal S1 and S2, no S3 noticed. PMI is normal. Respiratory: Equal breath sounds bilaterally, no tachypnea; lungs clear to auscultation bilaterally, no wheezing ,rub or rales, or crackles. Chest wall is symmetric and without deformity. No signs of trauma. Chest wall is nontender. No signs of respiratory distress. Resonance is normal upon percussion bilaterally. Gastrointestinal: Abdomen symmetric, non-distended, soft, non-tender, normal bowel sounds x4 quadrant, normoactive, no hepatosplenomegaly , no masses , no bruit, no flank pain bilaterally. No voluntary guarding, rebound, or rigidity. No tenderness to percussion. No pulsatile masses. Equal femoral pulses. No Maciel's sign or McBurney point tenderness. Back; no CVA tenderness bilaterally, no deformities. Neck and back are without deformity as well. No tenderness noted on palpation of the spinous processes. Spinous processes are midline. Cervical, thoracic, and lumbar paraspinal muscles are not tender and are without spasm. Musculoskeletal: Extremities, normal range of motion, non-tender, muscle strength 5/5 x 4. Negative Homans signs bilaterally on lower extremity. Distal pulses full symmetrical, no clubbing, cyanosis , edema. Neurological: Speech is clear, alert, and oriented x 4. No motor or sensory deficit, deep tendon reflexes normal, cerebellar intact. Cranial nerves II-XII intact. Psych: Alert and or appropriate, normal affect. Vascular: Good distal pulses, which are equal x4; capillary refill less than 2 seconds. Lymphatic, no lymphadenopathy. Result Diagram: 05/07/2543305/07/25433 Problem\Assessment\Plan Assessment This is a 69-year-old female patient with a past medical history of rheumatoid arthritis, hypertension, hyperlipidemia, gastroparesis, recurrent osteomyelitis, admitted for left obstructive ureterolithiasis complicated with hydronephrosis, pyelonephritis and ANJELICA. Patient is being treated initially with IV fluids, tamsulosin and ceftriaxone. Dr. Ortiz was consulted by the ER staff and did not recommend any procedure at this moment. If she does not develop any signs of sepsis and the pain is controlled she can be discharged with outpatient follow-up. Plan Complicated obstructive ureterolithiasis CT abdomen: 6 mm obstructing stone in the left UVJ is causing mild left-sided hydroureteronephrosis and left-sided pyelonephritis. Sepsis ruled-out WBC 8.5, ESR 36, procalcitonin < 0.05, lactic acid 1.3 Urinalysis: 3-10 RBC, negative nitrite and leukocyte esterase Received 1000 mL of normal saline Started on tamsulosin 0.4 mg daily Started on IV hydration and ceftriaxone Ordered blood cultures Acute on chronic kidney injury Creatinine 2.1 (baseline 1.93), BUN 38 IV hydration with lactated Ringer at 100 mL/hr Rheumatoid arthritis - not on acute flare Continue home medication after med reconciliation Hypertension - not controlled most likely because of the pain Continue home medication after med reconciliation Hydralazine 10 mg IV p.r.n. Hyperlipidemia Ordered lipid panel Continue atorvastatin 40 mg after med reconciliation Code Status: DNR DVT prophylaxis: Heparin Analgesia/sedation: Morphine/[place] Line/tube: PIV GI prophylaxis: None Nutrition: Regular diet Physical therapy: yes Sepsis Screening Reassessment Date: May 07, 2025 Date of Service: May 07, 2025 Billing Provider: ALEXIS CANALES MD Common Visit Codes: [id number] INP/OBS CARE(HIGH) ALEXIS CANALES MD May 07, 2025 20:16
[2025-05-08 06:00] VITALS: BP 150/79; PULSE 95; RESP 16; TEMP 98.5; O2SAT 94
[2025-05-08 07:22] LABS: MEAN PLATELET VOLUME 9.9 FL (7.4-10.4); RED CELL DISTRIBUTION WIDTH 14.4 % (11.5-14.5)
[2025-05-08 07:32] LABS: CREATININE 2.33 MG/DL (0.40-0.90); TOTAL CARBON DIOXIDE 20.8 MMOL/L (24-32); eCRCL 17 ML/MIN; eGFR 21 ML/MIN
[2025-05-08 10:00] VITALS: BP 144/75; PULSE 88; RESP 16; TEMP 98; O2SAT 97
[2025-05-08] MEDS: magnesium sulf-water 4G/100mL 100 ML IV PRN (11:56)
[2025-05-08] MEDS: magnesium sulf-water 2g/50mL 50 ML IV PRN (15:25)
--- NOTE | 2025-05-08 17:34 | PROGRESS NOTE ---
Daily Progress Note Providers to CC ~ feels better today, better sleep no pain Central Line/PICC still needed: No Garsia-Non Protocol Garsia Indications Met/Not Met: F/C Indications Not Met Antibiotic Timeout Antibiotic Ordered?: Yes MRSA Education MRSA Education Provided to pt: Yes Subjective As above Objective Vital Signs Date Time Temp Pulse Resp B/P (MAP) Pulse Ox O2 Delivery O2 Flow Rate FiO2 05/08/25 15:24 17 05/08/25 08:00 Room Air 0.0 05/07/25 22:00 97.9 80 147/75 (99) 96 Vital signs, stable ,afebrile. Pulse Oximetry reflects adequate oxygenation. General: well developed, well nourished. Awake , alert, and oriented x4, resting comfortably in the bed, in no acute distress . Skin: Warm, dry, no pallor, no rash or petechiae. HEENT: Atraumatic, normocephalic, EOMI, anicteric sclera B; pink conjunctiva; PERRLA, normal oropharynx, moist oral and nasal mucosa. Tympanic membrane , nose , throat clear. Neck: Trachea midline. Supple, full range of motion, no JVD, bruit , hepatojugular reflex , lymphadenopathy or masses, or other lesions Cardiac: Regular rhythm, regular rate no murmurs, rubs, or gallops. Normal S1 and S2, no S3 noticed. PMI is normal. Respiratory: Equal breath sounds bilaterally, no tachypnea; lungs clear to auscultation bilaterally, no wheezing ,rub or rales, or crackles. Chest wall is symmetric and without deformity. No signs of trauma. Chest wall is nontender. No signs of respiratory distress. Resonance is normal upon percussion bilaterally. Gastrointestinal: Abdomen symmetric, non-distended, soft, non-tender, normal bowel sounds x4 quadrant, normoactive, no hepatosplenomegaly , no masses , no bruit, no flank pain bilaterally. No voluntary guarding, rebound, or rigidity. No tenderness to percussion. No pulsatile masses. Equal femoral pulses. No Maciel's sign or McBurney point tenderness. Back; no CVA tenderness bilaterally, no deformities. Neck and back are without deformity as well. No tenderness noted on palpation of the spinous processes. Spinous processes are midline. Cervical, thoracic, and lumbar paraspinal muscles are not tender and are without spasm. Musculoskeletal: Extremities, normal range of motion, non-tender, muscle strength 5/5 x 4. Negative Homans signs bilaterally on lower extremity. Distal pulses full symmetrical, no clubbing, cyanosis , edema. Neurological: Speech is clear, alert, and oriented x 4. No motor or sensory deficit, deep tendon reflexes normal, cerebellar intact. Cranial nerves II-XII intact. Psych: Alert and or appropriate, normal affect. Vascular: Good distal pulses, which are equal x4; capillary refill less than 2 seconds. Lymphatic, no lymphadenopathy. Result Diagram: 05/08/2551 05/08/25 0651 Problem\Assessment\Plan Assessment This is a 69-year-old female patient with a past medical history of rheumatoid arthritis, hypertension, hyperlipidemia, gastroparesis, recurrent osteomyelitis, admitted for left obstructive ureterolithiasis complicated with hydronephrosis, pyelonephritis and ANJELICA. Patient is being treated initially with IV fluids, tamsulosin and ceftriaxone. Dr. Ortiz was consulted by the ER staff and did not recommend any procedure at this moment. If she does not develop any signs of sepsis and the pain is controlled she can be discharged with outpatient follow-up. Plan Hypomagnesemia, replace electrolytes Complicated chronic obstructive ureterolithiasis, in exacerbation CT abdomen: 6 mm obstructing stone in the left UVJ is causing mild left-sided hydroureteronephrosis and left-sided pyelonephritis. Sepsis ruled-out WBC 8.5, ESR 36, procalcitonin < 0.05, lactic acid 1.3 Urinalysis: 3-10 RBC, negative nitrite and leukocyte esterase Received 1000 mL of normal saline Started on tamsulosin 0.4 mg daily Started on IV hydration and ceftriaxone Ordered blood cultures Acute kidney injury under to vasomotor nephropathy Creatinine 2.1 (baseline 1.93), BUN 38 IV hydration with lactated Ringer at 100 mL/hr Rheumatoid arthritis - not on acute flare Continue home medication after med reconciliation Hypertension - not controlled most likely because of the pain Continue home medication after med reconciliation Hydralazine 10 mg IV p.r.n. Hyperlipidemia Ordered lipid panel Continue atorvastatin 40 mg after med reconciliation Code Status: DNR DVT prophylaxis: Heparin Analgesia/sedation: Morphine/[place] Line/tube: PIV GI prophylaxis: None Nutrition: Regular diet Physical therapy: yes Sepsis Screening Reassessment Date: May 08, 2025 Date of Service: May 08, 2025 Billing Provider: ALEXIS CANALES MD Common Visit Codes: [id number] INP/OBS CARE(HIGH) ALEXIS CANALES MD May 08, 2025 17:34
[2025-05-08 18:00] VITALS: BP 157/80; PULSE 80; RESP 16; TEMP 97.5; O2SAT 97
[2025-05-08 20:00] VITALS: RESP 16; O2SAT 97
[2025-05-08 22:00] VITALS: BP 116/97; PULSE 94; RESP 18; TEMP 97.6; O2SAT 98
[2025-05-09 05:31] LABS: MEAN PLATELET VOLUME 9.9 FL (7.4-10.4); RED CELL DISTRIBUTION WIDTH 14.1 % (11.5-14.5)
[2025-05-09 05:46] LABS: CREATININE 2.00 MG/DL (0.40-0.90); TOTAL CARBON DIOXIDE 23.0 MMOL/L (24-32); eCRCL 20 ML/MIN; eGFR 25 ML/MIN
[2025-05-09 06:45] VITALS: BP 150/91; PULSE 84; RESP 18; TEMP 97.6; O2SAT 93
[2025-05-09 08:00] VITALS: RESP 16
[2025-05-09 10:30] VITALS: BP 149/75; PULSE 88; RESP 16; TEMP 97.8; O2SAT 93
[2025-05-09] MEDS ORDERED: NITR100C6 PO (10:39)
--- NOTE | 2025-05-09 19:27 | DISCHARGE SUMMARY ---
Discharge Summary Providers to Feels better today asking to be discharged home ~ Discharge Summary Assessment Left ureter stone Hypomagnesemia Acute kidney injury secondary to vasomotor nephropathy UTI, complicated Rheumatoid arthritis Hypertension Hyperlipidemia Gastroparesis Recurrent osteomyelitis Admission Diagnosis: 6 mm obstructing stone in the left UVJ, pyelonephritis Admission Diagnosis Comment: Left ureter stone Hypomagnesemia Acute kidney injury secondary to vasomotor nephropathy UTI, complicated Rheumatoid arthritis Hypertension Hyperlipidemia Gastroparesis Recurrent osteomyelitis Hospital Course DATE OF ADMISSION: May 06, 2025 DATE OF DISCHARGE: May 09, 2025 Discharge Diagnosis\Comment: Left ureter stone Hypomagnesemia Acute kidney injury secondary to vasomotor nephropathy UTI, complicated Rheumatoid arthritis Hypertension Hyperlipidemia Gastroparesis Recurrent osteomyelitis Operations\Procedures: Non Consultants: Dr. Ortiz, urologist Complications: Non Condition on DC: Stable Discharge Summary: This is a 69-year-old female patient with a past medical history of rheumatoid arthritis, hypertension, hyperlipidemia, gastroparesis, recurrent osteomyelitis, presented to the emergency department for acute left flank pain radiating for left inguinal region, associated with difficulty to urinate. The pain was severe (8/10 in intensity) and associated with nausea, vomiting and chills. Patient presented on April 25 for right side flank pain and was treated with cephalexin for two weeks, with complete resolution of the pain, denies fever, diarrhea or any respiratory symptoms. The pain has now subsided and she is comfortable without any other complaints. After admission patient was extensively evaluated and treated including IV antibiotics today she is feeling fine asking to be discharged home follow-up with PCP and urologist in two days, return to emergency department if condition worsens, medication reconciled, today on physical exam Vital signs, stable ,afebrile. Pulse Oximetry reflects adequate oxygenation. General: well developed, well nourished. Awake , alert, and oriented x4, resting comfortably in the bed, in no acute distress . Skin: Warm, dry, no pallor, no rash or petechiae. HEENT: Atraumatic, normocephalic, EOMI, anicteric sclera B; pink conjunctiva; PERRLA, normal oropharynx, moist oral and nasal mucosa. Tympanic membrane , nose , throat clear. Neck: Trachea midline. Supple, full range of motion, no JVD, bruit , hepatojugular reflex , lymphadenopathy or masses, or other lesions Cardiac: Regular rhythm, regular rate no murmurs, rubs, or gallops. Normal S1 and S2, no S3 noticed. PMI is normal. Respiratory: Equal breath sounds bilaterally, no tachypnea; lungs clear to auscultation bilaterally, no wheezing ,rub or rales, or crackles. Chest wall is symmetric and without deformity. No signs of trauma. Chest wall is nontender. No signs of respiratory distress. Resonance is normal upon percussion bilaterally. Gastrointestinal: Abdomen symmetric, non-distended, soft, non-tender, normal bowel sounds x4 quadrant, normoactive, no hepatosplenomegaly , no masses , no bruit, no flank pain bilaterally. No voluntary guarding, rebound, or rigidity. No tenderness to percussion. No pulsatile masses. Equal femoral pulses. No Maciel's sign or McBurney point tenderness. Back; no CVA tenderness bilaterally, no deformities. Neck and back are without deformity as well. No tenderness noted on palpation of the spinous processes. Spinous processes are midline. Cervical, thoracic, and lumbar paraspinal muscles are not tender and are without spasm. Musculoskeletal: Extremities, normal range of motion, non-tender, muscle strength 5/5 x 4. Negative Homans signs bilaterally on lower extremity. Distal pulses full symmetrical, no clubbing, cyanosis , edema. Neurological: Speech is clear, alert, and oriented x 4. No motor or sensory deficit, deep tendon reflexes normal, cerebellar intact. Cranial nerves II-XII intact. Psych: Alert and or appropriate, normal affect. Vascular: Good distal pulses, which are equal x4; capillary refill less than 2 seconds. Lymphatic, no lymphadenopathy. *Problems/Diagnosis: (1) Urinary tract infection Status: Acute (2) Calculus of kidney Status: Acute (3) Rheumatoid arthritis Status: Chronic Permanent Comment: Left total hip arthroplasty 08/28/2017 Last Edited By: Jelly LOPEZ on Aug 29, 2017 06:23 Total Time Spent on D/C: > 30 Minutes Date of Service: May 09, 2025 Billing Provider: ALEXIS CANALES MD Common Visit Codes: [id number]/[id number] DISCH DAY >30min ALEXIS CANALES MD May 09, 2025 19:27
== END 2025-05-09 13:25 | disposition home health service (06) | DRG 690 ==
LOC: ER 12:51 → ED HOLD 19:19 → SUR 3N 22:20
PROVIDERS: ADMIT Internal Medicine Pulmonary Disease; ATTEND Family Medicine
PROC: BW251ZZ Computerized Tomography (CT Scan) of Chest, Abdomen and Pelvis using Low Osmolar Contrast (ICD-10-PCS; principal; 2025-05-06)
DX: N13.6 Pyonephrosis (principal); N20.2 Calculus of kidney with calculus of ureter; N17.0 Acute kidney failure with tubular necrosis; E78.5 Hyperlipidemia, unspecified; E83.42 Hypomagnesemia; I10 Essential (primary) hypertension; K31.84 Gastroparesis; M06.9 Rheumatoid arthritis, unspecified; Z66 Do not resuscitate; Z96.653 Presence of artificial knee joint, bilateral; Z87.442 Personal history of urinary calculi; Z96.642 Presence of left artificial hip joint; Z88.8 Allergy status to other drugs, medicaments and biological substances; Z79.899 Other long term (current) drug therapy
CPT/HCPCS: 36415; 74177; 80053; 80061; 81001; 82570; 83605; 83690; 83735; 83880; 83935; 84133; 84145; 84300; 84540; 85025; 85651; 87040; 87081; 96361; 96374; 96375; 97161; 97530; 99285; A4353; G0378; J0360; J0696; J1171; J1644; J2270; J2405; J2765; J3475; J7030; J7120; Q0163; Q9967